=== PATIENT | male | born 1995 | race African-American/Black ===

== ENCOUNTER 2019-03-02 14:17 | Emergency (ER) | payer MEDICAID ==
[~2019-03-02] VITALS: Ht 170.2 cm; Wt 51.0 kg
[2019-03-02 16:07] LABS: BASOPHILS % 0.5 % (0.0-2.0); EOSINOPHILS % 0.9 % (0.0-5.0); HEMOGLOBIN. 15.7 g/dL (14.0-18.0); LYMPHOCYTES % 28.5 % (20.0-50.0); MEAN CORPUSCULAR HEMOGLOBIN 31.9 pg (28.0-32.0); MEAN CORPUSCULAR VOLUME 93.4 fL (80.0-94.0); MEAN PLATELET VOLUME 7.3 fl (7.4-10.4); MONOCYTES % 7.5 % (2.0-8.0); NEUTROPHILS % 62.6 % (40.0-76.0); PLATELET 258 x1000/uL (130-400); RED BLOOD CELL COUNT 4.92 mill/uL (4.7-6.1); RED CELL DISTRIBUTION WIDTH 12.8 % (11.6-14.6)
[2019-03-02 16:10] LABS: CHLORIDE 103 mEq/L (98-107)
[2019-03-02 19:30] VITALS: BP 119/72
[2019-03-05 09:11] LABS: ANTI-NUCLEAR ANTIBODIES DIRECT Negative (Negative)
== END 2019-03-02 20:23 | disposition home or self-care (01) ==
LOC: ER 14:17
DX: R63.4 Abnormal weight loss (principal); Z68.1 Body mass index [BMI] 19.9 or less, adult; G50.1 Atypical facial pain; H53.8 Other visual disturbances; R07.89 Other chest pain; R06.02 Shortness of breath; R03.0 Elevated blood-pressure reading, without diagnosis of hypertension
CPT/HCPCS: 36415; 71046; 82232; 86038; 99284

== ENCOUNTER 2019-03-15 08:36 | Emergency (ER) | payer MEDICAID ==
[~2019-03-15] VITALS: Ht 170.2 cm; Wt 53.0 kg
[2019-03-15 10:34] VITALS: BP 128/75
== END 2019-03-15 10:37 | disposition home or self-care (01) ==
LOC: ER 08:36
DX: J40 Bronchitis, not specified as acute or chronic (principal); R59.0 Localized enlarged lymph nodes; R63.4 Abnormal weight loss; Z68.1 Body mass index [BMI] 19.9 or less, adult
CPT/HCPCS: 99283

== ENCOUNTER 2019-03-18 17:52 | Emergency (ER) | payer MEDICAID ==
[~2019-03-18] VITALS: Ht 170.2 cm; Wt 52.0 kg
[2019-03-18 19:10] VITALS: BP 140/83
== END 2019-03-18 19:16 | disposition home or self-care (01) ==
LOC: ER 18:03
DX: H66.93 Otitis media, unspecified, bilateral (principal); J32.9 Chronic sinusitis, unspecified
CPT/HCPCS: 99283